=== PATIENT | female | born 1995 | race Two or more races ===

== ENCOUNTER 2016-11-27 06:24 | Emergency (ER) | payer OTHER ==
--- NOTE | 2016-11-27 09:57 | REP ---
Clinical: Pelvic pain . Technique: Transabdominal pelvic ultrasound followed by transvaginal examination for better evaluation of the endometrium and adnexa with color Doppler evaluation of the ovaries. Findings: Bladder is unremarkable and measures 8.7 x 7.9 x 4.4 cm . Examination suggests didelphic uterus with the left uterus measuring 6.2 x 3.4 x 6.0 cm and endometrial complex measuring 8.4 mm thickness, and the right uterus measuring 6.7 x 3.1 x 6.0 cm with the endometrial complex measuring 6.3 mm thickness. No further discrete uterine or endometrial abnormalities are appreciated. Bilateral ovaries are normal in appearance and vascularity without evidence for torsion. Right ovary measures 2.7 x 1.6 x 2.7 cm ; R I = 0.47 . Left ovary measures 3.7 x 1.5 x 2.5 cm ; R I = 0.55 . Moderate amount of free fluid in the pelvis is nonspecific. Impression: 1. 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 2. Otherwise normal uterus and ovaries ovaries and no evidence for torsion. 3. Moderate amount of free fluid in the pelvis. Signed by Neil Rojas MD 11/27/2016 09:49 A
[2016-11-27] MEDS ORDERED: CIPR-249 PO (10:07)
[2016-11-27] MEDS ORDERED: FLAG500T PO (10:07)
[2016-11-27 10:14] VITALS: BP 136/83
[2016-11-27] MEDS ORDERED: CIPROFLOXACIN 500 MG TAB PO ONE (10:15)
[2016-11-27] MEDS ORDERED: metroNIDAZOLE (FLAGYL) 500 MG TAB PO ONE (10:15)
== END 2016-11-27 10:24 | disposition home or self-care (01) ==
LOC: M ED 06:24
DX: N30.90 Cystitis, unspecified without hematuria (principal); N76.0 Acute vaginitis; Q51.3 Bicornate uterus; Z88.0 Allergy status to penicillin

== ENCOUNTER → 2017-03-10 | Outpatient (REF) | payer OTHER ==
[~2017-03-10] MED LIST: CIPR-249 PO; FLAG500T PO
== END ==
LOC: M LAB REF 15:03
PROVIDERS: ATTEND Physician Assistant
DX: J02.9 Acute pharyngitis, unspecified (principal)

== ENCOUNTER 2018-05-26 18:17 | Emergency (ER) | payer OTHER, SELFPAY ==
[~2018-05-26] VITALS: Ht 172.7 cm; Wt 100.0 kg
[2018-05-26 18:17] VITALS: BP 131/63
--- NOTE | 2018-05-26 18:48 | REP ---
Clinical: Trauma. Technique: AP, lateral, bilateral oblique views trauma. Findings: The osseous structures and joint spaces are intact and normal. There is no evidence for acute fracture or dislocation. Surrounding soft tissues are unremarkable. No subcutaneous emphysema or radiodense foreign body. Impression: No acute fracture or dislocation. Electronically Signed by Neil Rojas MD 05/26/2018 06:40 P
[2018-05-26] MEDS ORDERED: IBUPROFEN 800 MG TAB PO ONE (19:30)
== END 2018-05-26 19:48 | disposition home or self-care (01) ==
LOC: M ED 18:17
DX: S60.221A Contusion of right hand, initial encounter (principal); W22.8XXA Striking against or struck by other objects, initial encounter; Y92.9 Unspecified place or not applicable; Y93.9 Activity, unspecified; Y99.0 Civilian activity done for income or pay; Z88.0 Allergy status to penicillin; Z88.1 Allergy status to other antibiotic agents

== ENCOUNTER 2018-10-20 10:35 | Emergency (ER) | payer OTHER, SELFPAY ==
[~2018-10-20] VITALS: Ht 172.7 cm; Wt 100.9 kg
[2018-10-20] MEDS ORDERED: CLIN150C14 PO (11:42)
[2018-10-20] MEDS ORDERED: KETOROLAC 30 MG/ML VIAL (J1885) IM ONE (11:45)
[2018-10-20 12:13] VITALS: BP 118/55
== END 2018-10-20 12:14 | disposition home or self-care (01) ==
LOC: M ED 10:35
DX: Z48.00 Encounter for change or removal of nonsurgical wound dressing (principal); M25.561 Pain in right knee; Z91.81 History of falling
CPT/HCPCS: 96372; 99284; J1885

== ENCOUNTER 2018-10-31 10:19 | Emergency (ER) | payer OTHER ==
[~2018-10-31] VITALS: Ht 172.7 cm; Wt 100.9 kg
[~2018-10-31 10:19] MED LIST changes: +CLIN150C14 PO
[2018-10-31 10:20] VITALS: BP 133/72
== END 2018-10-31 11:27 | disposition home or self-care (01) ==
LOC: M ED 10:19
DX: Z48.02 Encounter for removal of sutures (principal); Z88.0 Allergy status to penicillin; Z88.8 Allergy status to other drugs, medicaments and biological substances

== ENCOUNTER 2020-09-29 18:54 | Emergency (ER) | payer OTHER ==
[~2020-09-29] VITALS: Ht 172.7 cm; Wt 109.5 kg
[~2020-09-29 18:54] MED LIST changes: -CLIN150C14 PO; +CLIN150C15 PO
[2020-09-29 19:03] VITALS: BP 145/84
[2020-09-29] MEDS ORDERED: MAGICMW SSP (20:17)
== END 2020-09-29 20:44 | disposition home or self-care (01) ==
LOC: M ED 18:54
DX: H65.03 Acute serous otitis media, bilateral (principal); J02.9 Acute pharyngitis, unspecified; K12.0 Recurrent oral aphthae; Z88.0 Allergy status to penicillin

== ENCOUNTER 2021-05-22 20:59 | Emergency (ER) | payer OTHER ==
[~2021-05-22] VITALS: Ht 172.7 cm; Wt 106.4 kg
[~2021-05-22 20:59] MED LIST changes: -CLIN150C15 PO; +CLIN150C17 PO; +MAGICMW SSP
[2021-05-22 21:00] VITALS: BP 130/71
== END 2021-05-23 02:42 | disposition left against medical advice (07) ==
LOC: M ED 20:59
DX: Z53.21 Procedure and treatment not carried out due to patient leaving prior to being seen by health care provider (principal)

== ENCOUNTER 2023-04-04 17:49 | Emergency (ER) | payer OTHER ==
[~2023-04-04] VITALS: Ht 172.7 cm; Wt 99.4 kg
[2023-04-04] MEDS ORDERED: CEPHALEXIN 500 MG CAP PO ONE (22:15)
[2023-04-04] MEDS ORDERED: BACITRACIN OINTMENT 30GM TUBE TOP ONE (22:15)
[2023-04-04] MEDS ORDERED: CEPH500C PO (22:38)
[2023-04-04 22:44] VITALS: BP 140/80; TEMP 98.9; O2SAT 98
== END 2023-04-04 22:50 | disposition home or self-care (01) ==
LOC: M ED 17:49
DX: T22.232A Burn of second degree of left upper arm, initial encounter (principal); T31.0 Burns involving less than 10% of body surface; X12.XXXA Contact with other hot fluids, initial encounter; Y99.0 Civilian activity done for income or pay; Z88.0 Allergy status to penicillin; Z88.1 Allergy status to other antibiotic agents

== ENCOUNTER 2023-11-12 00:53 | Emergency (ER) | payer OTHER, SELFPAY ==
[~2023-11-12] VITALS: Ht 172.7 cm; Wt 95.5 kg
[~2023-11-12 00:53] MED LIST changes: +CEPH500C PO
[2023-11-12 02:08] VITALS: TEMP 97.8
[2023-11-12] MEDS: KETOROLAC TROMETHAMINE 10 MG TAB PO ONE (02:53)
[2023-11-12 03:00] VITALS: BP 103/67; O2SAT 100
== END 2023-11-12 04:32 | disposition home or self-care (01) ==
LOC: M ED 00:53
DX: S92.355A Nondisplaced fracture of fifth metatarsal bone, left foot, initial encounter for closed fracture (principal); Y92.9 Unspecified place or not applicable; Y93.9 Activity, unspecified; Y99.0 Civilian activity done for income or pay; Z88.1 Allergy status to other antibiotic agents; Z88.8 Allergy status to other drugs, medicaments and biological substances

== ENCOUNTER → 2023-12-14 | Outpatient (CLI) | payer OTHER | LOC: M SOG 07:54 | PROVIDERS: ATTEND Physician Assistant | DX: S92.352A Displaced fracture of fifth metatarsal bone, left foot, initial encounter for closed fracture (principal); Y93.9 Activity, unspecified; Y92.9 Unspecified place or not applicable ==

== ENCOUNTER → 2024-01-03 | Outpatient (CLI) | payer OTHER | LOC: M RAD 14:05 | PROVIDERS: ATTEND Physician Assistant | DX: M25.572 Pain in left ankle and joints of left foot (principal) ==